=== PATIENT | female | born 1975 | race Caucasian/White ===

== ENCOUNTER 2016-10-26 11:12 | Outpatient (CLI) | payer OTHER ==
--- NOTE | 2016-10-26 11:52 | DIAGNOSTIC IMAGING REPORT ---
PROCEDURE: XR MANDIBLE COMPLETE INDICATION: LEFT JAW PAIN X6MO TECHNIQUE: Five views of the mandible COMPARISON: None available FINDINGS: No fracture or dislocation. No osseous lesions. Mandibular condyles are normal. IMPRESSION: 1. Normal mandible and teeth.
== END 2016-10-26 23:00 ==
LOC: XR SRH 11:12
DX: R68.84 Jaw pain (principal); M26.609 Unspecified temporomandibular joint disorder, unspecified side